=== PATIENT | female | born 1950 | race Caucasian/White ===

== ENCOUNTER 2016-11-11 02:18 | Emergency (ER) | payer MEDICARE, OTHER ==
[~2016-11-11] VITALS: Ht 177.8 cm; Wt 120.0 kg
[2016-11-11] MEDS ORDERED: SODIUM CHLORIDE 0.9% 1,000ML IVBOLUS ONE (03:00)
[2016-11-11] MEDS ORDERED: SODIUM CHLORIDE FLUSH 10ML SYR IVF ONE (03:00)
[2016-11-11] MEDS ORDERED: ONDANSETRON 2MG/ML, 2ML IVPush ONE (03:00)
[2016-11-11] MEDS ORDERED: FAMOTIDINE 20 MG/2 ML IVP ONE (03:00)
[2016-11-11] MEDS ORDERED: HYDROmorphone 1 MG/ML, 1ML IVPush ONE (03:00)
[2016-11-11 03:04] LABS: HEMATOCRIT 44.7 % (34.6-47.8); HEMOGLOBIN 15.3 g/dL (11.7-16.4); WHITE BLOOD COUNT 7.6 x10^3/uL (3.4-10)
[2016-11-11 03:13] LABS: ASPARTATE AMINO TRANSFERASE 21 U/L (15-37); BLOOD UREA NITROGEN 20 mg/dL (7-18)
[2016-11-11] MEDS ORDERED: FAMOTIDINE 20 MG/2 ML ONE (03:30)
[2016-11-11] MEDS ORDERED: HYDROmorphone 1 MG/ML, 1ML ONE (03:30)
[2016-11-11] MEDS ORDERED: ONDANSETRON 2MG/ML, 2ML ONE (03:30)
[2016-11-11] MEDS ORDERED: METH-356 PO (04:04)
[2016-11-11] MEDS ORDERED: LAMO25TB PO (04:04)
[2016-11-11] MEDS ORDERED: CLON0.5T20 PO (04:04)
[2016-11-11] MEDS ORDERED: DILT240C61 PO (04:04)
[2016-11-11] MEDS ORDERED: D5%-0.45NACL+KCL 20MEQ 1,000 ML IV SCH (04:27)
[2016-11-11] MEDS ORDERED: LABETALOL 5MG/ML, 20ML IVPush PRN (04:30)
[2016-11-11] MEDS ORDERED: ONDANSETRON ODT 4 MG PO PRN (04:30)
[2016-11-11] MEDS ORDERED: METHADONE 10 MG TABLET PO PRN (04:30)
[2016-11-11] MEDS ORDERED: HEPARIN 5,000 UNITS/ML, 1ML ONE (05:25)
[2016-11-11] MEDS: HEPARIN 5,000 UNITS/ML, 1ML SQ SCH ×2 (05:35→12:30)
[2016-11-11 05:47] LABS: PATH.CAST-FLAG NOT PRESENT; SPERM-FLAG NOT PRESENT; SRC-FLAG NOT PRESENT; XTAL-FLAG NOT PRESENT; YLC-FLAG NOT PRESENT
[2016-11-11] MEDS ORDERED: PANTOPROZOLE 40MG TABLET PO SCH (07:30)
[2016-11-11] MEDS ORDERED: DILTIAZEM 240 MG CAP.ER.24H PO SCH (09:00)
[2016-11-11] MEDS ORDERED: LAMOTRIGINE 25 MG TABLET PO SCH (09:00)
[2016-11-11 15:35] VITALS: BP 118/64
== END 2016-11-11 02:49 | disposition home or self-care (01) ==
LOC: ED 02:43 → UNDOADMIN 03:56 → EDIP 03:56 → ED 15:57
DX: K56.69 Other intestinal obstruction (principal); I10 Essential (primary) hypertension; I25.2 Old myocardial infarction
CPT/HCPCS: 36415; 74176; 80053; 81001; 83690; 85025; 87077; 87086; 93005; 96361; 96365; 96366; 96375; 99285; J1170; J1644; J2405; J3480; J7030; 87186; 96374; S0028

== ENCOUNTER 2016-11-14 05:50 | Inpatient (IN) | payer MEDICARE ==
[~2016-11-14] VITALS: Ht 177.8 cm; Wt 113.0 kg
[~2016-11-14 05:50] MED LIST: CLON0.5T20 PO; DILT240C61 PO; LAMO25TB PO; METH-356 PO
[2016-11-14] MEDS ORDERED: SODIUM CHLORIDE 0.9% 1,000 ML IV ONE (06:29)
[2016-11-14] MEDS ORDERED: SODIUM CHLORIDE FLUSH 10ML SYR IVF ONE (06:30)
[2016-11-14] MEDS ORDERED: SODIUM CHLORIDE 0.9% 1,000ML IVBOLUS ONE (06:30)
[2016-11-14] MEDS ORDERED: ONDANSETRON 2MG/ML, 2ML IVPush ONE (06:30)
[2016-11-14] MEDS ORDERED: HYDROmorphone 1 MG/ML, 1ML IVPush PRN (06:30)
[2016-11-14] MEDS ORDERED: HYDROmorphone 1 MG/ML, 1ML ONE (06:34)
[2016-11-14] MEDS ORDERED: ONDANSETRON 2MG/ML, 2ML ONE (06:35)
[2016-11-14 07:11] LABS: HEMATOCRIT 43.1 % (34.6-47.8); HEMOGLOBIN 14.6 g/dL (11.7-16.4); WHITE BLOOD COUNT 7.3 x10^3/uL (3.4-10)
[2016-11-14 07:20] LABS: ASPARTATE AMINO TRANSFERASE 24 U/L (15-37); BLOOD UREA NITROGEN 10 mg/dL (7-18)
[2016-11-14 08:33] LABS: PATH.CAST-FLAG NOT PRESENT; SPERM-FLAG NOT PRESENT; SRC-FLAG NOT PRESENT; XTAL-FLAG NOT PRESENT; YLC-FLAG NOT PRESENT
[2016-11-14] MEDS ORDERED: LIDO35.46 EXT (09:42)
[2016-11-14] MEDS ORDERED: HYDROmorphone 2 MG/ML, 1ML IVPush PRN (11:30)
[2016-11-14] MEDS ORDERED: ONDANSETRON 2MG/ML, 2ML IVPush PRN (11:30)
[2016-11-14] MEDS ORDERED: ENALAPRILAT 1.25 MG/ML, 2ML IVPush PRN ×2 (11:30→14:30)
[2016-11-14] MEDS ORDERED: [UNRECOGNIZED DRUG - REMARK] MC SCH (12:30)
[2016-11-14] MEDS ORDERED: [UNRECOGNIZED DRUG - OTHER] MC SCH (12:30)
[2016-11-14] MEDS: CEFTRIAXONE PMX 1GM/50ML 50 ML IV SCH (17:20)
[2016-11-14] MEDS: NS + 20MEQ KCL 1,000 ML IV SCH (17:20)
[2016-11-14] MEDS: HEPARIN 5,000 UNITS/ML, 1ML SQ SCH ×2 (17:28→22:35)
[2016-11-14 20:35] VITALS: BP 121/67
[2016-11-15] MEDS: NS + 20MEQ KCL 1,000 ML IV SCH ×4 (00:55→23:22)
[2016-11-15 01:43] VITALS: BP 138/79
[2016-11-15] MEDS: CEFTRIAXONE PMX 1GM/50ML 50 ML IV SCH ×2 (05:43→17:08)
[2016-11-15] MEDS: HEPARIN 5,000 UNITS/ML, 1ML SQ SCH ×3 (05:43→19:48)
[2016-11-15 05:53] LABS: HEMOGLOBIN 13.8 g/dL (11.7-16.4); WHITE BLOOD COUNT 5.4 x10^3/uL (3.4-10)
[2016-11-15 05:54] LABS: BLOOD UREA NITROGEN 8 mg/dL (7-18)
[2016-11-15 07:56] VITALS: BP 155/80
[2016-11-15 14:56] VITALS: BP 149/84
[2016-11-15] MEDS ORDERED: BISACODYL 10 MG SUPP PR ONE (17:00)
[2016-11-15] MEDS ORDERED: SENNOSIDES 8.6 MG TABLET PO PRN (17:00)
[2016-11-15 18:41] VITALS: BP 177/81
[2016-11-15 19:44] VITALS: BP 170/84
[2016-11-16 01:18] VITALS: BP 189/76
[2016-11-16 01:38] VITALS: BP 170/88
[2016-11-16] MEDS: CEFTRIAXONE PMX 1GM/50ML 50 ML IV SCH ×2 (04:28→16:52)
[2016-11-16] MEDS: HEPARIN 5,000 UNITS/ML, 1ML SQ SCH ×3 (04:36→22:35)
[2016-11-16] MEDS: NS + 20MEQ KCL 1,000 ML IV SCH (04:37)
[2016-11-16 05:16] LABS: BLOOD UREA NITROGEN 8 mg/dL (7-18)
[2016-11-16] MEDS ORDERED: FLU VACC QS2016-17 (36MOS+)UP/PF 0.5 ML IM-VACC ONE (07:30)
[2016-11-16 07:40] VITALS: BP 196/66
[2016-11-16 08:39] VITALS: BP 154/84
[2016-11-16] MEDS ORDERED: BISACODYL 10 MG SUPP PR ONE (09:00)
[2016-11-16] MEDS: DILTIAZEM 240 MG CAP.ER.24H PO SCH ×2 (09:20→21:00)
[2016-11-16] MEDS ORDERED: NS + 20MEQ KCL 1,000 ML IV SCH (12:00)
[2016-11-16 13:25] VITALS: BP 152/87
[2016-11-16 21:16] VITALS: BP 163/78
[2016-11-17 02:06] VITALS: BP 171/85
[2016-11-17 03:09] VITALS: BP 151/74
[2016-11-17] MEDS: CEFTRIAXONE PMX 1GM/50ML 50 ML IV SCH (05:58)
[2016-11-17] MEDS: HEPARIN 5,000 UNITS/ML, 1ML SQ SCH ×2 (05:58→13:36)
[2016-11-17 06:17] LABS: BLOOD UREA NITROGEN 8 mg/dL (7-18)
[2016-11-17 07:13] VITALS: BP 136/84
[2016-11-17] MEDS: DILTIAZEM 240 MG CAP.ER.24H PO SCH (09:28)
[2016-11-17] MEDS ORDERED: POLYETHYLENE GLYCOL 17 GM PACKET PO ONE (10:00)
[2016-11-17 14:28] VITALS: BP 119/55
[2016-11-17 16:51] VITALS: BP 126/66
== END 2016-11-17 17:15 | disposition home or self-care (01) | DRG 389 ==
LOC: ED 07:06 → EDIP 11:28 → 4NOR 13:54 → OBSVTOIN 15:48
PROVIDERS: ADMIT Family Medicine; ATTEND Family Medicine
DX: K56.690 Other partial intestinal obstruction (principal); N17.9 Acute kidney failure, unspecified; F11.20 Opioid dependence, uncomplicated; N30.90 Cystitis, unspecified without hematuria; K59.03 Drug induced constipation; Z88.8 Allergy status to other drugs, medicaments and biological substances; I10 Essential (primary) hypertension; B96.20 Unspecified Escherichia coli [E. coli] as the cause of diseases classified elsewhere; E86.0 Dehydration; G89.29 Other chronic pain; Z82.49 Family history of ischemic heart disease and other diseases of the circulatory system; I25.2 Old myocardial infarction; Z88.0 Allergy status to penicillin; Z88.5 Allergy status to narcotic agent; T40.2X5A Adverse effect of other opioids, initial encounter
CPT/HCPCS: 36415; 74177; 80048; 80053; 81001; 83690; 85025; 87077; 87086; 87186; 90686; 93005; 96361; 96374; 96375; G0378; J0696; J1170; J1644; J2405; J3480; J7030

== ENCOUNTER 2018-02-19 11:05 | Emergency (ER) | payer MEDICARE ==
[~2018-02-19] VITALS: Ht 177.8 cm; Wt 113.6 kg
[~2018-02-19 11:05] MED LIST changes: -LAMO25TB PO; +LAMO25TB7 PO; +LIDO35.46 EXT
--- NOTE | 2018-02-19 11:19 | NUR ---
PA-C IS AT THE BEDSIDE TO ASSESS
--- NOTE | 2018-02-19 11:34 | NUR ---
PT TO AND FROM [employer]. SHE TOLERATED THE FILMS WELL.
--- NOTE | 2018-02-19 11:52 | NUR ---
PT JUST SELF ADMINISTERED 240 MG OF PO DILTIAZEM. MD IS AWARE, AND AGREEABLE.
--- NOTE | 2018-02-19 12:16 | NUR ---
PT AMBULATED TO AND FROM THE RESTROOM WITH A STEADY GAIT.
[2018-02-19 12:22] LABS: BASOPHILS # (AUTO) 0.02 x10^3/uL (0-0.1); BASOPHILS % (AUTO) 0 % (0-1); EOSINOPHILS # (AUTO) 0.04 x10^3/uL (0-0.4); EOSINOPHILS % (AUTO) 1 % (1-7); LYMPHOCYTES # (AUTO) 1.76 x10^3/uL (1-3.4); LYMPHOCYTES % (AUTO) 23 % (22-44); MD NO; MEAN CORPUSCULAR HEMOGLOBIN 30.5 pg (27.0-34.8); MEAN CORPUSCULAR VOLUME 89.6 fL (80-100); MONOCYTES # (AUTO) 0.57 x10^3/uL (0.2-0.8); MONOCYTES % (AUTO) 8 % (2-9); NEUTROPHILS # (AUTO) 5.13 x10^3/uL (1.8-6.8); NEUTROPHILS % (AUTO) 68 % (42-75); PLATELET COUNT 239 x10^3/uL (130-400); RED BLOOD COUNT 5.11 x10^6/uL (3.82-5.3)
[2018-02-19 12:33] LABS: ALANINE AMINOTRANSFERASE 40 U/L (12-78); ALBUMIN 3.7 g/dL (3.4-5.0); ANION GAP 8 mmol/L (5-15); CALCIUM 8.1 mg/dL (8.5-10.1); CHLORIDE 107 mmol/L (98-107)
[2018-02-19 12:35] LABS: ALKALINE PHOSPHATASE 84 U/L (45-117); BILIRUBIN,TOTAL 0.7 mg/dL (0.2-1.0); CREATININE 1.15 mg/dL (0.55-1.02); TOTAL PROTEIN 7.3 g/dL (6.4-8.2)
[2018-02-19 13:05] VITALS: BP 190/94
--- NOTE | 2018-02-19 13:19 | NUR ---
TASK RN: Patient/Caregiver given discharge instructions and they have confirmed that they understand the instructions. Patient ambulatory with MOTORIZED SCOOTER
== END 2018-02-19 13:20 | disposition home or self-care (01) ==
LOC: ED 12:14
DX: J18.1 Lobar pneumonia, unspecified organism (principal); I25.2 Old myocardial infarction; I10 Essential (primary) hypertension
CPT/HCPCS: 36415; 71046; 80053; 85025; 99284

== ENCOUNTER 2018-02-20 01:17 | Emergency (ER) | payer MEDICARE ==
[~2018-02-20] VITALS: Ht 177.8 cm; Wt 110.0 kg
--- NOTE | 2018-02-20 02:02 | NUR ---
Pt ambulated with walker with steady gait to room from [facility].
--- NOTE | 2018-02-20 02:09 | NUR ---
Provider to bedside for pt eval complete. Pt reports having phlegm drip down her throat which gags her and makes her vomit, pt states she also has a productive cough. Pt reports when she blows her nose it is clear, pt reports when she coughs sputum up it is yellowish green. Pt reports these sx have been going on for a few week. pt reports she was given cough meds for these sx but she does not take them because she did not like the listed side effects. Pt a/ox4, breathing E/U. pt converses well, in full sentences without difficulty. no acute distress noted, no cough noted while in room. call light in reach.
--- NOTE | 2018-02-20 02:16 | NUR ---
LAB AT BEDSIDE FOR BLOOD DRAW
[2018-02-20 02:23] LABS: BASOPHILS # (AUTO) 0.01 x10^3/uL (0-0.1); BASOPHILS % (AUTO) 0 % (0-1); EOSINOPHILS # (AUTO) 0.02 x10^3/uL (0-0.4); EOSINOPHILS % (AUTO) 0 % (1-7); LYMPHOCYTES % (AUTO) 20 % (22-44); MD NO; MEAN CORPUSCULAR HEMOGLOBIN 30.6 pg (27.0-34.8); MEAN CORPUSCULAR HGB CONC 34.2 g/dL (32.4-35.8); MEAN CORPUSCULAR VOLUME 89.3 fL (80-100); MEAN PLATELET VOLUME 8.5 fL (7.4-10.4); MONOCYTES # (AUTO) 0.53 x10^3/uL (0.2-0.8); MONOCYTES % (AUTO) 7 % (2-9); NEUTROPHILS # (AUTO) 5.36 x10^3/uL (1.8-6.8); NEUTROPHILS % (AUTO) 72 % (42-75); PLATELET COUNT 231 x10^3/uL (130-400); RED BLOOD COUNT 5.16 x10^6/uL (3.82-5.3); RED CELL DISTRIBUTION WIDTH 12.6 % (9.6-15.2)
[2018-02-20] MEDS ORDERED: ONDANSETRON ODT 4 MG PO ONE (02:30)
[2018-02-20 02:34] LABS: ALBUMIN 3.8 g/dL (3.4-5.0); ANION GAP 7 mmol/L (5-15); CALCIUM 8.8 mg/dL (8.5-10.1); CHLORIDE 107 mmol/L (98-107); CREATININE 1.18 mg/dL (0.55-1.02)
--- NOTE | 2018-02-20 02:38 | NUR ---
Arlene RN: urine sample obtained and sent to lab.
[2018-02-20 02:43] LABS: MICROSCOPIC AUTO
[2018-02-20 02:44] LABS: CULTURE INDICATED? YES
--- NOTE | 2018-02-20 02:51 | NUR ---
PT SITTING UP IN BED, BREATHING E/U, DENIES NEEDS. PT PLEASANT AND COOPERATIVE. NO DISTRESS NOTED. CALL LIGHT IN REACH.
[2018-02-20] MEDS ORDERED: ONDANSETRON ODT 4 MG ONE (03:11)
[2018-02-20 03:18] VITALS: BP 189/94
--- NOTE | 2018-02-20 03:20 | NUR ---
LATE ENTRY; PT BP ELEVEATED, PT REPORTS SHE TAKES BP MEDS BID AT HOME FOR HTN. MD BEDOLLA NOTIFIED. NO NEW ORDERS.
--- NOTE | 2018-02-20 03:23 | NUR ---
PT RECIEVED PAULINOAN PER ORDERS, SEE EMAR. PT REQUESTED CHAP STICK AND AN ICE PACK, PT STATES HE CHEEKS FEEL HOT. PT AFEBRILE. Addendum: 02/20/18 at 0324 by [email or web address] CHAP STICK AND ICE PACK GIVEN TO PT.
--- NOTE | 2018-02-20 03:30 | NUR ---
pt to restroom.
== END 2018-02-20 04:07 | disposition home or self-care (01) ==
LOC: ED 02:53
DX: R11.2 Nausea with vomiting, unspecified (principal); R05 Cough; R30.0 Dysuria; I10 Essential (primary) hypertension; I25.2 Old myocardial infarction; Z88.5 Allergy status to narcotic agent; Z88.6 Allergy status to analgesic agent; Z88.8 Allergy status to other drugs, medicaments and biological substances
CPT/HCPCS: 36415; 71045; 80048; 81001; 82040; 85025; 87086; 99284; Q0162